=== PATIENT | female | born 1935 | race Caucasian/White ===

== ENCOUNTER 2017-01-20 15:42 | Inpatient (IN) | payer MEDICARE, OTHER ==
[2017-01-20] MEDS: TPN ELECTROLYTES IV SCH ×5 (18:48)
[2017-01-20] MEDS: [UNRECOGNIZED DRUG - OTHER] IV SCH ×5 (18:48)
[2017-01-20] MEDS: INTRALIPID 20% IV SCH ×5 (18:48)
[2017-01-20 19:11] LABS: Mean Cell Volume 95.2 fl (78-100); Mean Corpuscular Hemoglobin 29.9 pg (26-32); Mean Platelet Volume 11.4 fl (6-9.5); Platelet Count 151 K/mm3 (150-450); Red Blood Count 2.94 M/mm3 (4.1-5.4); Red Cell Distribution Width 15.5 % (11.5-14.0); White Blood Count 7.5 K/mm3 (4.0-10.5)
[2017-01-20 19:43] LABS: ALBUMIN 2.4 g/dL (3.4-5.0); ANION GAP 12.1 MEQ/L (5-15); BILIRUBIN,TOTAL 0.6 mg/dL (0.2-1.0); Carbon Dioxide 26.4 mEq/L (21-32); MAGNESIUM 1.3 mg/dL (1.8-2.4); Potassium 3.9 mEq/L (3.5-5.1); Total Protein 5.7 gm/dL (6.4-8.2)
[2017-01-20] MEDS: MORPHINE SULFATE 4 MG INJ IV PRN (19:46)
[2017-01-21] MEDS: MORPHINE SULFATE 4 MG INJ IV PRN (07:06)
[2017-01-21] MEDS ORDERED: CHLORPHENIRAMINE PO PRN (07:24)
[2017-01-21] MEDS ORDERED: TYLENOL 325 MG PO PRN (07:24)
[2017-01-21] MEDS ORDERED: HYDROCODONE PO PRN (07:24)
[2017-01-21] MEDS ORDERED: ZOFRAN ODT 4 MG PO PRN (07:24)
[2017-01-21] MEDS ORDERED: Colace 100 MG PO PRN (07:24)
[2017-01-21] MEDS ORDERED: Tussionex Pennkinetic Susp PO PRN (07:49)
[2017-01-21] MEDS ORDERED: MEDICATION INTERVENTION MC PRN (07:57)
[2017-01-21] MEDS: Magnesium 1 Gm / 100 Ml D5W*** 100 ML IV SCH ×2 (09:09→10:32)
[2017-01-21] MEDS: Sodium Chloride 0.9% 1000 ML 1,000 ML IV SCH (09:09)
[2017-01-21] MEDS: Lopressor 25MG Tab PO SCH ×2 (09:14→21:21)
[2017-01-21] MEDS: Cardizem CD 120 MG PO SCH (09:15)
[2017-01-21] MEDS: SYNTHROID 75 MCG PO SCH (09:16)
[2017-01-21] MEDS: CLARITIN 10 MG PO SCH (09:20)
[2017-01-21] MEDS: FOLATE 1 MG PO SCH (09:20)
[2017-01-21] MEDS: Calcium 500MG W/Vit D Tablet PO SCH ×2 (09:20→21:30)
[2017-01-21] MEDS: PROVENTIL 2.5 MG/3 ML NEB IH PRN ×2 (09:20→14:30)
[2017-01-21] MEDS: Robitussin-Dm Syrup PO SCH ×2 (09:21→21:30)
[2017-01-21] MEDS: Protonix 40MG Tablet PO SCH (09:21)
[2017-01-21] MEDS: Klor Con 10 MEQ PO SCH ×2 (09:21→21:30)
[2017-01-21] MEDS: THERAGRAN MULTIVITAMIN PO SCH (09:21)
[2017-01-21] MEDS: VITAMIN D PO SCH (09:22)
[2017-01-21] MEDS ORDERED: CALCIUM CARBONATE PO SCH (10:00)
[2017-01-21] MEDS ORDERED: NON-FORMULARY ITEM (Potassium Chloride [Potassium Chloride] 10 MEQ) PO SCH (10:00)
[2017-01-21] MEDS ORDERED: VITAMIN D3 PO SCH (10:00)
[2017-01-21] MEDS ORDERED: Aplisol ID SCH (10:00)
[2017-01-21] MEDS ORDERED: MULTIVITAMIN WITH MINERALS PO SCH (10:00)
[2017-01-21] MEDS ORDERED: [UNRECOGNIZED DRUG - OTHER] PO SCH (10:00)
[2017-01-21] MEDS ORDERED: NON-FORMULARY ITEM (Cholecalciferol (Vitamin D3) [D3-2000] 2,000 UNIT) PO SCH (10:00)
[2017-01-21] MEDS ORDERED: [UNRECOGNIZED DRUG - OTHER] PO SCH (10:00)
[2017-01-21] MEDS: TPN ELECTROLYTES IV SCH ×5 (15:26)
[2017-01-21] MEDS: INTRALIPID 20% IV SCH ×5 (15:26)
[2017-01-21] MEDS: [UNRECOGNIZED DRUG - OTHER] IV SCH ×5 (15:26)
[2017-01-21] MEDS: XARELTO 10 MG TABLET PO SCH (15:27)
[2017-01-21] MEDS: OXYCODONE-ACETAMINOPHEN 10-325 PO PRN (15:27)
[2017-01-22] MEDS: Sodium Chloride 0.9% 1000 ML 1,000 ML IV SCH ×2 (02:17→13:06)
[2017-01-22 06:35] LABS: ALBUMIN 2.1 g/dL (3.4-5.0); ANION GAP 10.7 MEQ/L (5-15); BILIRUBIN,TOTAL 0.3 mg/dL (0.2-1.0); Carbon Dioxide 26.4 mEq/L (21-32); MAGNESIUM 2.1 mg/dL (1.8-2.4); Total Protein 5.3 gm/dL (6.4-8.2)
[2017-01-22] MEDS: PROVENTIL 2.5 MG/3 ML NEB IH PRN ×2 (08:00→19:46)
[2017-01-22] MEDS: Lopressor 25MG Tab PO SCH ×2 (09:44→21:02)
[2017-01-22] MEDS: Cardizem CD 120 MG PO SCH (09:44)
[2017-01-22] MEDS: SYNTHROID 75 MCG PO SCH (09:45)
[2017-01-22] MEDS: Protonix 40MG Tablet PO SCH (09:59)
[2017-01-22] MEDS: Robitussin-Dm Syrup PO SCH ×3 (13:08→21:05)
[2017-01-22] MEDS: Calcium 500MG W/Vit D Tablet PO SCH ×2 (14:51→21:05)
[2017-01-22] MEDS: CLARITIN 10 MG PO SCH (15:01)
[2017-01-22] MEDS: FOLATE 1 MG PO SCH (15:01)
[2017-01-22] MEDS: Klor Con 10 MEQ PO SCH ×2 (15:01→21:05)
[2017-01-22] MEDS: THERAGRAN MULTIVITAMIN PO SCH (15:01)
[2017-01-22] MEDS: VITAMIN D PO SCH (15:02)
[2017-01-22] MEDS: XARELTO 10 MG TABLET PO SCH (18:13)
[2017-01-22] MEDS: [UNRECOGNIZED DRUG - OTHER] IV SCH ×5 (18:14)
[2017-01-22] MEDS: INTRALIPID 20% IV SCH ×5 (18:14)
[2017-01-22] MEDS: TPN ELECTROLYTES IV SCH ×5 (18:14)
[2017-01-22] MEDS: OXYCODONE-ACETAMINOPHEN 10-325 PO PRN (21:04)
[2017-01-23 06:00] LABS: Mean Cell Volume 96.9 fl (78-100); Mean Platelet Volume 11.4 fl (6-9.5); Platelet Count 185 K/mm3 (150-450); Red Cell Distribution Width 15.2 % (11.5-14.0); White Blood Count 8.3 K/mm3 (4.0-10.5)
[2017-01-23 06:01] LABS: Mean Corpuscular Hemoglobin 29.6 pg (26-32)
[2017-01-23 06:19] LABS: ALBUMIN 2.4 g/dL (3.4-5.0); ANION GAP 14.7 MEQ/L (5-15); BLOOD UREA NITROGEN 31 mg/dL (9-20); CHLORIDE 102 mEq/L (98-107); Carbon Dioxide 23.2 mEq/L (21-32); Glucose 111 MG/DL (70-110); MAGNESIUM 2.1 mg/dL (1.8-2.4); SODIUM 136 mEq/L (136-145)
[2017-01-23] MEDS: Cardizem CD 120 MG PO SCH (08:55)
[2017-01-23] MEDS: Lopressor 25MG Tab PO SCH ×2 (08:55→23:08)
[2017-01-23] MEDS: Protonix 40MG Tablet PO SCH (08:57)
[2017-01-23] MEDS: SYNTHROID 75 MCG PO SCH (08:57)
[2017-01-23] MEDS: Calcium 500MG W/Vit D Tablet PO SCH ×2 (09:49→23:13)
[2017-01-23] MEDS: THERAGRAN MULTIVITAMIN PO SCH (09:50)
[2017-01-23] MEDS: VITAMIN D PO SCH (09:50)
[2017-01-23] MEDS: Robitussin-Dm Syrup PO SCH ×2 (09:50→23:09)
[2017-01-23] MEDS: FOLATE 1 MG PO SCH (09:50)
[2017-01-23] MEDS: CLARITIN 10 MG PO SCH (09:50)
[2017-01-23] MEDS: Klor Con 10 MEQ PO SCH ×2 (09:52→23:13)
[2017-01-23] MEDS: PROVENTIL 2.5 MG/3 ML NEB IH PRN (11:50)
[2017-01-23] MEDS: Sodium Chloride 0.9% 1000 ML 1,000 ML IV SCH (15:27)
[2017-01-23] MEDS: XARELTO 10 MG TABLET PO SCH (18:02)
[2017-01-23] MEDS: TPN ELECTROLYTES IV SCH ×5 (18:02)
[2017-01-23] MEDS: [UNRECOGNIZED DRUG - OTHER] IV SCH ×5 (18:02)
[2017-01-23] MEDS: INTRALIPID 20% IV SCH ×5 (18:02)
[2017-01-23] MEDS: MORPHINE SULFATE 4 MG INJ IV PRN (19:09)
[2017-01-24] MEDS: MORPHINE SULFATE 4 MG INJ IV PRN ×2 (04:47→16:57)
[2017-01-24] MEDS: Lopressor 25MG Tab PO SCH ×2 (09:40→22:23)
[2017-01-24] MEDS: Protonix 40MG Tablet PO SCH (09:41)
[2017-01-24] MEDS: SYNTHROID 75 MCG PO SCH (09:41)
[2017-01-24] MEDS: Cardizem CD 120 MG PO SCH (09:41)
[2017-01-24] MEDS: CLARITIN 10 MG PO SCH (10:09)
[2017-01-24] MEDS: Calcium 500MG W/Vit D Tablet PO SCH (10:09)
[2017-01-24] MEDS: THERAGRAN MULTIVITAMIN PO SCH (10:09)
[2017-01-24] MEDS: FOLATE 1 MG PO SCH (10:09)
[2017-01-24] MEDS: VITAMIN D PO SCH (10:10)
[2017-01-24] MEDS: Klor Con 10 MEQ PO SCH (10:10)
[2017-01-24] MEDS: Robitussin-Dm Syrup PO SCH (10:10)
[2017-01-24] MEDS: XARELTO 10 MG TABLET PO SCH (16:51)
[2017-01-24] MEDS: Sodium Chloride 0.9% 1000 ML 1,000 ML IV SCH (16:51)
[2017-01-24] MEDS: INTRALIPID 20% IV SCH ×5 (16:57)
[2017-01-24] MEDS: [UNRECOGNIZED DRUG - OTHER] IV SCH ×5 (16:57)
[2017-01-24] MEDS: TPN ELECTROLYTES IV SCH ×5 (16:57)
[2017-01-24] MEDS: OXYCODONE-ACETAMINOPHEN 10-325 PO PRN (22:28)
[2017-01-25] MEDS: Calcium 500MG W/Vit D Tablet PO SCH ×3 (00:11→21:23)
[2017-01-25] MEDS: Klor Con 10 MEQ PO SCH ×3 (00:11→21:23)
[2017-01-25] MEDS: Robitussin-Dm Syrup PO SCH ×3 (00:11→21:23)
[2017-01-25 05:51] LABS: Mean Cell Volume 97.4 fl (78-100); Mean Corpuscular Hemoglobin 29.4 pg (26-32); Platelet Count 206 K/mm3 (150-450); Red Blood Count 2.65 M/mm3 (4.1-5.4); White Blood Count 6.9 K/mm3 (4.0-10.5)
[2017-01-25 06:09] LABS: ALBUMIN 2.2 g/dL (3.4-5.0); ANION GAP 12.6 MEQ/L (5-15); CHLORIDE 103 mEq/L (98-107); Carbon Dioxide 24.3 mEq/L (21-32); Glucose 133 MG/DL (70-110); Potassium 4.2 mEq/L (3.5-5.1); SODIUM 136 mEq/L (136-145); Total Protein 5.6 gm/dL (6.4-8.2)
[2017-01-25 06:36] LABS: BLOOD UREA NITROGEN 34 mg/dL (9-20)
[2017-01-25] MEDS ORDERED: MORPHINE SULFATE 2 MG INJ IV PRN (07:42)
[2017-01-25] MEDS: VITAMIN D PO SCH (08:00)
[2017-01-25] MEDS: FOLATE 1 MG PO SCH (08:00)
[2017-01-25] MEDS: Cardizem CD 120 MG PO SCH (08:00)
[2017-01-25] MEDS: THERAGRAN MULTIVITAMIN PO SCH (08:01)
[2017-01-25] MEDS: CLARITIN 10 MG PO SCH (08:01)
[2017-01-25] MEDS: Lopressor 25MG Tab PO SCH ×2 (08:03→21:21)
[2017-01-25] MEDS: SYNTHROID 75 MCG PO SCH (08:03)
[2017-01-25] MEDS: Protonix 40MG Tablet PO SCH (08:04)
[2017-01-25] MEDS: Voltaren GEL TOP SCH ×3 (08:12→21:22)
[2017-01-25] MEDS: INTRALIPID 20% IV SCH ×5 (17:22)
[2017-01-25] MEDS: [UNRECOGNIZED DRUG - OTHER] IV SCH ×5 (17:22)
[2017-01-25] MEDS: TPN ELECTROLYTES IV SCH ×5 (17:22)
[2017-01-25] MEDS: XARELTO 10 MG TABLET PO SCH ×2 (17:23→17:30)
[2017-01-25 20:20] VITALS: BP 152/67; O2SAT 98
[2017-01-25 21:13] VITALS: PULSE 90
[2017-01-25] MEDS: OXYCODONE-ACETAMINOPHEN 10-325 PO PRN (21:21)
--- NOTE | 2017-01-26 08:47 | DS ---
DISCHARGE DIAGNOSIS: METASTATIC ADENOCARCINOMA OF THE LUNG. 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 She has been receiving chemotherapy. She has received rounds initially with standard chemotherapy and then had Opdivo. She became to the point where she stopped eating and drinking and presented herself for endoscopic evaluation by Dr. Duncan at [facility]. However the patient was in atrial fibrillation at the time and the procedure was initially canceled. The patient was admitted to the hospital and treated for the atrial fibrillation. She responded nicely with converting back to sinus rhythm with minimal medications at that time although the patient was quite weak and required IV fluid hydration and hyperalimentation due to her weakened state. At the end of the hospitalization the patient was not felt to be ready for discharge home and it was felt that she may have some rehab potential. She was therefore transferred to our facility for further rehab evaluation and management. HOSPITAL COURSE: The patient being admitted to the swing-bed program has been receiving IV hyperalimentation and pain medications to control the pain. She has been evaluated in OT, ST and PT. She is however weak and refusing to participate in the therapy at this point. The patient is felt to have received her maximal benefit from the therapy and is basically being discharged home. The family has decided at this point she will be remanded to the care of Hospice. She is not expected to survive much longer under the current circumstances. The patient is now discharged home into the care of her family and Hospice. Her home medications will now include MSIR 5 mg every four hours PRN for pain, Percocet 10/325 mg every four hours PRN pain, Voltaren gel t.i.d. PRN pain. Her other home medications will now include Proventil nebulizer treatments PRN. She is on oxygen at 4 liters nasal cannula. She will receive Cardizem CD 120 mg daily, docusate sodium 100 mg b.i.d., levothyroxine 75 mcg daily, metoprolol 25 mg b.i.d., Zofran 4 mg PRN for nausea and Nexium 40 mg once a day. She will no longer be receiving chemotherapy medications at this time.
[2017-01-26] MEDS: Cardizem CD 120 MG PO SCH (10:04)
[2017-01-26] MEDS: SYNTHROID 75 MCG PO SCH (10:07)
[2017-01-26] MEDS: Protonix 40MG Tablet PO SCH (10:08)
[2017-01-26] MEDS: Lopressor 25MG Tab PO SCH (10:16)
[2017-01-26] MEDS: Calcium 500MG W/Vit D Tablet PO SCH (10:17)
[2017-01-26] MEDS: Klor Con 10 MEQ PO SCH (10:17)
[2017-01-26] MEDS: FOLATE 1 MG PO SCH (10:17)
[2017-01-26] MEDS: Robitussin-Dm Syrup PO SCH (10:17)
[2017-01-26] MEDS: VITAMIN D PO SCH (10:17)
[2017-01-26] MEDS: CLARITIN 10 MG PO SCH (10:17)
[2017-01-26] MEDS: THERAGRAN MULTIVITAMIN PO SCH (10:17)
[2017-01-26] MEDS: Voltaren GEL TOP SCH ×2 (10:20→13:23)
[2017-01-26 13:12] LABS: Bilirubin NEGATIVE (NEGATIVE); Blood 250 Ery/ul (0-5); COMPLETE URINE MICROSCOPIC? YES; Collection Type CCMS; Glucose NEGATIVE (NEGATIVE); Leukocyte Esterase 2+ (NEGATIVE); WBC >100 /HPF (0-5)
[2017-01-26 13:13] LABS: Bacteria MANY /HPF (NEGATIVE); Epithelial Cells FEW /HPF (FEW)
[2017-01-26] MEDS: OXYCODONE-ACETAMINOPHEN 10-325 PO PRN (13:22)
[2017-02-01] MEDS ORDERED: Aplisol ID SCH (10:00)
== END 2017-01-26 14:15 | disposition hospice, home (50) | DRG 181 ==
LOC: MED SURG 17:27
PROVIDERS: ADMIT Family Medicine; ATTEND Family Medicine
DX: C34.90 Malignant neoplasm of unspecified part of unspecified bronchus or lung (principal); C79.51 Secondary malignant neoplasm of bone; R13.10 Dysphagia, unspecified; I48.91 Unspecified atrial fibrillation; Z79.899 Other long term (current) drug therapy
CPT/HCPCS: 36415; 80048; 80053; 81000; 82040; 83735; 84155; 85027; 87077; 87086; 87186; 94640; 94760; J1642; J2270; J3475; Q0162; 97110-GP; A9270-GY